=== PATIENT | male | born 1955 | race Caucasian/White ===

== ENCOUNTER 2025-02-09 12:46 | Outpatient (RCR) | payer OTHER, SELFPAY ==
[2025-02-09 13:02] VITALS: BP 107/71; PULSE 65; RESP 17; TEMP 36.1; O2SAT 96
[2025-02-09 13:43] LABS: Creatinine* 1.2 mg/dL (0.5-1.5); Estimated Glomerular Filt Rate 65 ml/min
== END 2025-08-08 23:59 | disposition home or self-care (01) ==
LOC: CCIC 12:46
PROVIDERS: Radiology Radiation Oncology; Visit Provider Clinical Nurse Specialist
DX: C61 Malignant neoplasm of prostate (principal)
CPT/HCPCS: 36415; 82565; 99211

== ENCOUNTER 2025-02-09 14:36 | Outpatient (CLI) | payer OTHER, SELFPAY | END 2025-02-09 14:37 | disposition home or self-care (01) | PROVIDERS: PCP Radiology Radiation Oncology; Visit Provider Radiology Radiation Oncology | DX: C61 Malignant neoplasm of prostate (principal) | CPT/HCPCS: 72195 ==